=== PATIENT | female | born 1960 | race Caucasian/White ===

== ENCOUNTER 2016-12-17 21:05 | Emergency (ER) | payer BC, MEDICAID ==
[2016-12-17 21:35] VITALS: BP 144/86
[2016-12-17] MEDS ORDERED: Sodium Chloride 0.9% 10 ML Syringe FLUSH PRN (21:44)
[2016-12-17] MEDS ORDERED: HYDROmorphone 1 MG/ML Syringe IVPUSH ONE (21:44)
[2016-12-17] MEDS ORDERED: methylPREDNISolone Sodium Succinate 125 MG/2 ML SDV IVPUSH ONE (21:45)
[2016-12-17] MEDS ORDERED: Metoclopramide 10 MG/2 ML SDV IVPUSH ONE (21:45)
--- NOTE | 2016-12-17 21:49 | EDM.PDOC ---
ED HPI GENERAL MEDICAL PROBLEM - General Chief Complaint: General Stated Complaint: WHOLE BODY PAIN Time Seen by Provider: 12/17/16 21:44 Source of Information: Reports: Patient History Limitations: Reports: No limitations - History of Present Illness INITIAL COMMENTS - FREE TEXT/NARRATIVE: 56-year-old female attends the ED with generalized severe pain in all of her joints due to rheumatoid arthritis flare. Patient was diagnosed with rheumatoid arthritis about 8 years ago but she believes she's had the disease for greater than 20 years. She was seeing Dr. freitas quote clerk in [place] for primary treatment. She lost her job and lost her insurance a few months back and was was forced to stop Enbrel and methotrexate which she was on 2 provide disease control. She states this worked well for her. However the ambulance close to $ 4000 a month and she's not able to afford it. Over the last few days she's had increased generalized severe pain in all of her joints and stiffness and soreness. She states it takes about 2 hours she is to get out of bed and get moving. Primary joints involved her feet ,hands ,shoulders and knees. Onset: other (Vaginally worsening over the last several weeks.) Duration: Week(s):, Chronic Location: Reports: generalized Quality: Reports: Ache, Throbbing Severity: severe Improves with: Reports: None Worsens with: Reports: Movement Context: Denies: Activity, Exercise, Lifting, Sick contact, Trauma, Other Associated Symptoms: Reports: malaise, weakness (In all her joints). Denies: confusion, chest pain, cough, cough w sputum, diaphoresis, fever/chills, headaches, loss of appetite, nausea/vomiting, rash, seizure, shortness of breath , syncope Treatments COMMER[employer]OCIATE: Reports: Other (see below) Generalized Pain Score (Numeric/FACES): 10 - Related Data Allergies Allergy/AdvReac Type Severity Reaction Status Date / Time No Known Allergies Allergy Verified 12/17/16 21:24 Home Meds: Home Meds Acetaminophen/Caffeine [Excedrin Tension Headache] 1 tab PO Q6H PRN 05/13/15 [ History] Aspirin 81 mg PO DAILY 05/13/15 [History] Escitalopram [Lexapro] 20 mg PO DAILY 05/13/15 [History] Fluticasone Propionate [Flonase] 2 spray NASBOTH BID 05/13/15 [History] Furosemide [Furosemide] 40 mg PO DAILY PRN 05/13/15 [History] Hydroxychloroquine Sulfate [Plaquenil] 200 mg PO BID 05/13/15 [History] Ibuprofen 800 mg PO BID 05/13/15 [History] Multivitamin [Daily Vitamin] 1 tab PO DAILY 05/13/15 [History] traMADol [Ultram] 50 mg PO Q6H PRN #10 tablet 05/13/15 [Rx] Prednisone [IJD: predniSONE] 20 mg PO ASDIRECTED #40 tab 12/17/16 [Rx] Prednisone [IJD: predniSONE] 20 mg PO WITHBREAKFAST #1 tab 12/17/16 [Rx] oxyCODONE HCl/Acetaminophen [Percocet 5-325 mg Tablet] 1 - 2 each PO Q4H PRN # 30 tablet 12/17/16 [Rx] oxyCODONE HCl/Acetaminophen [Percocet 5-325 mg Tablet] 1 - 2 each PO Q4H PRN #5 tablet 12/17/16 [Rx] Past Medical History Other HEENT History: wears reading glasses Musculoskeletal History: Reports: RA - Past Surgical History Other Musculoskeletal Surgeries/Procedures:: back surgery, hammer toe repair Social & Family History - Tobacco Use Smoking Status *Q: Never Smoker - Caffeine Use Caffeine Use: Reports: Coffee, Soda - Recreational Drug Use Recreational Drug Use: No - Living Situation & Occupation Living situation: Reports: single Occupation: employed (Currently working as a cook.) ED ROS GENERAL - Review of Systems Review Of Systems: See Below Constitutional: Reports: malaise, weakness, fatigue, decreased appetite. Denies : fever, chills, weight loss HEENT: Reports: Ear pain (Had right-sided ear pain the other day which I believe is coming from the temporomandibular joint involvement with rheumatoid arthritis.) Respiratory: Reports: No Symptoms Cardiovascular: Reports: No symptoms Endocrine: Reports: fatigue GI/Abdominal: Reports: No symptoms : Reports: no symptoms Musculoskeletal: Reports: neck pain, shoulder pain, arm pain, joint pain, joint swelling, other Skin: Reports: no symptoms (Has rheumatoid arthritis. Every joint in her body is affected.) Neurological: Reports: No Symptoms Psychiatric: Reports: No symptoms ED EXAM, GENERAL - Physical Exam Exam: See Below Exam Limited By: No limitations General Appearance: alert, WD/WN, moderate distress ( appears to be in discomfort.) Throat/Mouth: Normal inspection, Normal oropharynx, Other (Does pain on palpation of both temporomandibular joints right greater than the left.) Head: atraumatic, normocephalic Neck: limited range of motion, tender lateral (Also crepitus on movement on rotation. Bilaterally.). No: full range of motion, lymphadenopathy (L), lymphadenopathy (R) Respiratory/Chest: no respiratory distress, lungs clear, normal breath sounds, no accessory muscle use, respiratory distress (Mild tachypnea at rest.) Cardiovascular: normal peripheral pulses, regular rate, rhythm, no edema, no murmur Peripheral Pulses: 1+: posterior tibial (L), posterior tibial (R), dorsalis pedis (L), dorsalis pedis (R) GI/Abdominal: normal bowel sounds, soft, non tender, no organomegaly, no abnormal bruit, no mass Back Exam: normal inspection, vertebral tenderness (Acute lower lumbar spine and SI joints.). No: CVA tenderness (L), CVA tenderness (R) Extremities: other (Shows the stigmata of rheumatoid arthritis with marked swelling of the and CP joints particularly the second and third bilaterally. There is active synovitis in both wrists both elbows and she has limited range of motion of both shoulders the abduction only to about 90 bilaterally. Similarly there is increased warmth and swelling with mild effusions in both knees. Tenderness of both ankles and swelling of the MTP joints. The first and second both feet.) Neurological: alert, oriented, CN II-XII intact, normal cognition Psychiatric: normal affect Skin Exam: Warm, Dry, Intact, Normal color, No rash Course - Vital Signs Last Recorded V/S: Last Vital Signs Temp 36.6 C 12/17/16 21:27 Pulse 86 12/17/16 21:27 Resp 20 12/17/16 21:27 BP 144/86 H 12/17/16 21:27 Pulse Ox 98 12/17/16 21:27 - Orders/Labs/Meds Orders: Active Orders 24 hr Category Date Time Status Peripheral IV Care [RC] . DIRECTED Care 12/17/16 21:44 Active Peripheral IV Insertion Adult [OM.PC] Stat Oth 12/17/16 21:44 Ordered Labs: Laboratory Tests 0412/17/16 12/17/16 Range/Units 21:55 21:55 21:55 WBC 7.24 (3.98-10.04) K/mm3 RBC 4.65 (3.98-5.22) M/mm3 Hgb 13.3 (11.2-15.7) gm/L Hct 40.8 (34.1-44.9) % MCV 87.7 (79.4-94.8) fl MCH 28.6 (25.6-32.2) pg MCHC 32.6 (32.2-35.5) g/dl RDW Std Deviation 39.7 (36.4-46.3) fL Plt Count 377 H (182-369) K/mm3 MPV 8.7 L (9.4-12.3) fl Neutrophils % (Manual) 42 (40-60) % Band Neutrophils % 0 (0-10) % Lymphocytes % (Manual) 46 H (20-40) % Atypical Lymphs % 0 % Monocytes % (Manual) 5 (2-10) % Eosinophils % (Manual) 5 (0.7-5.8) % Basophils % (Manual) 2 H (0.1-1.2) Platelet Estimate Adequate RBC Morph Comment Normal ESR 48 H (0-20) mm/hr Sodium 142 (136-145) mEq/L Potassium 3.8 (3.5-5.1) mEq/L Chloride 106 (98-107) mEq/L Carbon Dioxide 27 (21-32) mEq/L Anion Gap 12.8 (5-15) BUN 17 (7-18) mg/dL Creatinine 0.8 (0.55-1.02) mg/dL Est Cr Clr Drug Dosing 88.81 mL/min Estimated GFR (MDRD) > 60 (>60) mL/min BUN/Creatinine Ratio 21.3 H (14-18) Glucose 118 H (74-106) mg/dL Calcium 9.2 (8.5-10.1) mg/dL Total Bilirubin 0.2 (0.2-1.0) mg/dL AST 12 L (15-37) U/L ALT 16 (14-59) U/L Alkaline Phosphatase 70 (46-116) U/L C-Reactive Protein 7.5 H* (<1.0) mg/dL Total Protein 7.4 (6.4-8.2) g/dl Albumin 3.3 L (3.4-5.0) g/dl Globulin 4.1 gm/dL Albumin/Globulin Ratio 0.8 L (1-2) Meds: Medications Discontinued Medications Generic Name Dose Route Start Last Admin Trade Name Bennie PRN Reason Stop Dose Admin Hydromorphone HCl 1 mg 12/17/16 21:44 12/17/16 22:03 Dilaudid IVPUSH 12/17/16 21:45 1 mg ONETIME ONE Administration Methylprednisolone Sodium Succinate 125 mg 12/17/16 21:45 12/17/16 22:05 Solu-Medrol IVPUSH 12/17/16 21:46 125 mg ONETIME ONE Administration Metoclopramide HCl 10 mg 12/17/16 21:45 12/17/16 22:01 Reglan IVPUSH 12/17/16 21:46 10 mg ONETIME ONE Administration Prednisone Confirm 12/17/16 23:30 Prednisone Administered 12/17/16 23:31 Dose 20 mg .ROUTE .STK-MED ONE Sodium Chloride 10 ml 12/17/16 21:44 12/17/16 22:06 Saline Flush FLUSH 10 ml ASDIRECTED PRN Administration Keep Vein Open - Radiology Interpretation Free Text/Narrative:: 56-year-old female attends the ED primarily for pain management. She has chronic rheumatoid arthritis and has been without her suppressive medications for about 3 months since she lost her job and insurance. She was previously well controlled on Inderal and methotrexate but has been enema before these medicines for over 3 months. Over the last few days the pain has become unbearable. She finds it takes him 2 hours to get out of bed and get moving. 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 She states increased swelling in her hands feet and knees and elbows are the worst at the present time. On exam she shows stigmata of rheumatoid arthritis with active synovitis involving MTP joints MCP joints of her hands knees ankles wrists and elbows and limited range of motion of her shoulders as well. Lungs are clear heart sounds normal. Plan CBC CMP will be done with a sedimentation rate and a CRP. I will give her Dilaudid 1 mg IV and Reglan 10 mg IV for pain relief and Solu-Medrol 125 mg IV. - Re-Assessments/Exams Free Text/Narrative Re-Assessment/Exam: 12/17 00:11;35: Labs reveal a white count of 7.24 with 42% neutrophils no bands and 46% lymphocytes. Hemoglobin is 13.3 with hematocrit of 40.8 platelets are good at 377,000. Chemistry was normal sedimentation rate is 48 CRP is elevated at 7.5. She is feeling better after the IV Dilaudid has taken the edge off her pain. The plan is to provide her with some Percocet tablets that she can use when necessary for pain relief. I tell her provided to the ED tonight and I wrote a prescription for 20 for the tablets. These are be taken one or 2 every 6 hours as needed for pain relief. I placed her on prednisone initially 20 mg a.m. and p.m. for 5 days then one tablet in the morning only for another 5 days and then reduce to one half tablet or 10 mg once daily in the morning only until she has followup with her quote clerk. Advise she must followup before she runs out of the prednisone as the prednisone dose needs to be weaned off and not stopped abruptly. She is breast to seek social service assistance in getting monies for medications tomorrow. I believe the [employer] has been unavailable so that Embrel can be made available to patients at cost of $10 monthly. Departure - Departure Time of Disposition: 23:25 Disposition: Home, Self-Care 01 Condition: serious Clinical Impression: Rheumatoid arthritis flare Prescriptions: Prednisone [IJD: predniSONE] 20 mg PO WITHBREAKFAST #1 tab Prednisone [IJD: predniSONE] 20 mg PO ASDIRECTED #40 tab oxyCODONE HCl/Acetaminophen [Percocet 5-325 mg Tablet] 1 - 2 each PO Q4H PRN #5 tablet PRN Reason: pain relief. oxyCODONE HCl/Acetaminophen [Percocet 5-325 mg Tablet] 1 - 2 each PO Q4H PRN # 30 tablet PRN Reason: pain relief. Instructions: Arthritis, [id number] Referrals: Glendy Garza NP [Primary Care Provider] - Forms: ED Department Discharge Additional Instructions: Evaluation in the emergency tonight in regards to gradually worsening rheumatoid arthritis flareup. Diagnosis of rheumatoid arthritis for greater than 8 years. Was well controlled well U. on Enbrel and methotrexate unfortunately unable to afford these medications due to lack of finances and insurance. Lab work today revealed elevation of the inflammatory markers but no serious abnormalities of the lungs liver or kidneys. He did receive a dose of steroid intravenously call Solu-Medrol 125 mg and medicine for pain relief Dilaudid 1 mg IV. He was sent home with Percocet tablet 5-25 mg strength suggest one or 2 tablets as needed every 6 hours for pain relief with continuation of your Motrin 600 mg every 6-8 hours for inflammation relief. Also will start prednisone 20 mg once daily in the morning and one tablet was sent home with you from the ED. Suggest taking prednisone 20 mg twice daily for the next 5 days to bring your acute inflammation under control then reduce to one tablet in the morning for another 5 days and then reduce to 10 mg for one half 20 mg tablet once daily in the morning until you have time to follow up with your quote clerk. Note she will need to follow up with quote clerk before the prednisone tablets are you to used up. Prednisone medication has to be weaned off slowly after being on it for more than 14 days. - My Orders Last 24 Hours: My Active Orders 12/17/16 21:44 Peripheral IV Care [RC] . DIRECTED Peripheral IV Insertion Adult [OM.PC] Stat - Assessment/Plan Last 24 Hours: My Active Orders 12/17/16 21:44 Peripheral IV Care [RC] . DIRECTED Peripheral IV Insertion Adult [OM.PC] Stat
[2016-12-17] MEDS ORDERED: predniSONE 20 MG Tab ONE (23:30)
[2016-12-17] MEDS ORDERED: Acetaminophen/oxyCODONE 325-5 MG Tab ONE (23:30)
== END 2016-12-17 23:40 | disposition home or self-care (01) ==
LOC: JD.ED 21:05
DX: M06.9 Rheumatoid arthritis, unspecified (principal); Z98.890 Other specified postprocedural states; Z79.899 Other long term (current) drug therapy; Z79.82 Long term (current) use of aspirin
CPT/HCPCS: 36415; 80053; 85025; 85652; 86140; 96374; 96375; 99283; A9270; J1170; J2765; J2930; J7050; 99284

== ENCOUNTER 2017-01-11 16:55 | Emergency (ER) | payer MEDICAID ==
[2017-01-11 17:13] VITALS: BP 131/89
--- NOTE | 2017-01-11 17:33 | EDM.PDOC ---
ED HPI GENERAL MEDICAL PROBLEM - General Chief Complaint: General Stated Complaint: HEAD ACHE, DIZZNESS Time Seen by Provider: 01/11/17 17:28 Source of Information: Reports: Patient, Family (spouse) History Limitations: Reports: No limitations - History of Present Illness INITIAL COMMENTS - FREE TEXT/NARRATIVE: 56-year-old female presents the ED for evaluation of upper respiratory tract infection. She feels caught a cold with marked sinus congestion for the last week to 10 days. Has a thick postnasal drip drip with a dark green discoloration to the discharge. She has pain in her forehead into. Ocular area as well as in her facial cheeks under her eyes. Her upper teeth hurt. She is aware of postnasal drip with paroxysmal cough to the point of emesis of just mucus at times. Nauseated at times. Is mildly immunocompromised as she remains on prednisone 10 mg once daily for control of rheumatoid arthritis. Intermittent fever and chills. Can't lay flat in bed due to to choking feeling in her throat. Associated sore throat from coughing so much. Appetite remains very poor. No diarrhea. Onset Date: 01/04/17 Duration: Day(s): (About a week ago perhaps 10 days ago.), Getting worse Location: Reports: head, face, chest Quality: Reports: Ache, Pressure Severity: moderate Improves with: Reports: None Worsens with: Reports: Other (Lying down.) Context: Denies: Activity, Exercise, Lifting, Sick contact, Trauma, Other Associated Symptoms: Reports: cough w sputum, fever/chills, headaches, loss of appetite, malaise, weakness (Dizzy and lightheaded at times.), other. Denies: confusion, chest pain, diaphoresis (Mostly dark green some yellow. No blood), nausea/vomiting, syncope Treatments [employer]ING: Reports: Other (see below) (Motrin.) Frontal Headache Pain Score (Numeric/FACES): 8 - Related Data Allergies Allergy/AdvReac Type Severity Reaction Status Date / Time No Known Allergies Allergy Verified 01/11/17 17:08 Home Meds: Home Meds Acetaminophen/Caffeine [Excedrin Tension Headache] 1 tab PO Q6H PRN 05/13/15 [ History] Aspirin 81 mg PO DAILY 05/13/15 [History] Escitalopram [Lexapro] 20 mg PO DAILY 05/13/15 [History] Fluticasone Propionate [Flonase] 2 spray NASBOTH BID 05/13/15 [History] Furosemide [Furosemide] 40 mg PO DAILY PRN 05/13/15 [History] Hydroxychloroquine Sulfate [Plaquenil] 200 mg PO BID 05/13/15 [History] Ibuprofen 800 mg PO BID 05/13/15 [History] Multivitamin [Daily Vitamin] 1 tab PO DAILY 05/13/15 [History] traMADol [Ultram] 50 mg PO Q6H PRN #10 tablet 05/13/15 [Rx] Prednisone [IJD: predniSONE] 20 mg PO ASDIRECTED #40 tab 12/17/16 [Rx] Prednisone [IJD: predniSONE] 20 mg PO WITHBREAKFAST #1 tab 12/17/16 [Rx] oxyCODONE HCl/Acetaminophen [Percocet 5-325 mg Tablet] 1 - 2 each PO Q4H PRN # 30 tablet 12/17/16 [Rx] oxyCODONE HCl/Acetaminophen [Percocet 5-325 mg Tablet] 1 - 2 each PO Q4H PRN #5 tablet 12/17/16 [Rx] Amoxicillin/Potassium Clav [Augmentin 500-125 Tablet] 1 each PO BID #20 tablet 01/11/17 [Rx] Hydrocodone/Chlorphen P-Stirex [Tussionex Pennkinetic Susp] 5 ml PO Q12H PRN # 60 ml 01/11/17 [Rx] oxyCODONE HCl/Acetaminophen [Percocet 5-325 mg Tablet] 1 - 2 each PO Q4H PRN # 24 tablet 01/11/17 [Rx] Past Medical History Other HEENT History: wears reading glasses Musculoskeletal History: Reports: RA - Past Surgical History Other Musculoskeletal Surgeries/Procedures:: back surgery, hammer toe repair Social & Family History - Tobacco Use Smoking Status *Q: Never Smoker - Caffeine Use Caffeine Use: Reports: Coffee - Recreational Drug Use Recreational Drug Use: No - Living Situation & Occupation Living situation: Reports: single Occupation: employed (Currently working as a cook.) ED ROS GENERAL - Review of Systems Review Of Systems: See Below Constitutional: Reports: fever, chills, malaise, weakness, fatigue, decreased appetite. Denies: weight loss HEENT: Reports: Ear pain, Rhinitis, Sinus problem, Throat pain, Vertigo (Mild). Denies: Eye pain, Nose pain Respiratory: Reports: Shortness of Breath, Wheezing, Cough, Sputum. Denies: Pleuritic Chest Pain (At end expiration), Hemoptysis (L. to [place]) Cardiovascular: Reports: No symptoms, Chest pain, Lightheadedness. Denies: Blood pressure problem (Some pain with coughing in her upper chest.), Claudication, Dyspnea on exertion, Edema, Orthopnea, Palpitations Endocrine: Reports: fatigue GI/Abdominal: Reports: Anorexia, Decreased appetite. Denies: Nausea, Vomiting : Reports: no symptoms Musculoskeletal: Reports: other (Patient has rheumatoid arthritis which is primarily affecting her hands wrists elbows knees.) Skin: Reports: no symptoms Neurological: Reports: Dizziness, Headache, Weakness. Denies: Trouble Speaking , Difficulty Walking Psychiatric: Reports: No symptoms Hematologic/Lymphatic: Reports: no symptoms Immunologic: Reports: no symptoms ED EXAM, GENERAL - Physical Exam Exam: See Below Exam Limited By: No limitations General Appearance: alert, mild distress, other (Mildly warm to palpation.) Eye Exam: bilateral eye: normal inspection Ears: normal TMs Nose: nasal swelling, nasal drainage (Or green color.). No: nasal tenderness Throat/Mouth: Other (Tongue is very dry and coated. Pharynx is mildly erythematous without exudate.) Head: atraumatic, normocephalic Neck: normal inspection, supple, non-tender, full range of motion. No: lymphadenopathy (L), lymphadenopathy (R) Respiratory/Chest: decreased breath sounds (Decrease to the posterior 25% the lung shore.), rhonchi, wheezing ( at end expiration.). No: crackles, rales Cardiovascular: normal peripheral pulses (Data rhonchi anterior upper chest), regular rate, rhythm, no edema, no gallop GI/Abdominal: normal bowel sounds, soft, non tender, no organomegaly, no distention, no abnormal bruit Back Exam: normal inspection, full range of motion. No: CVA tenderness (L), CVA tenderness (R) Extremities: joint swelling (MCP joints of both hands there is active synovitis in her elbows and wrists as well with mild increased warmth. He is also reveal increased warmth from rheumatoid arthritis.) Neurological: alert, oriented, CN II-XII intact, normal cognition, normal gait Psychiatric: normal affect, normal mood Skin Exam: Warm, Dry, Intact, Normal color, No rash Course - Vital Signs Last Recorded V/S: Last Vital Signs Temp 37.0 C 01/11/17 17:03 Pulse 113 H 01/11/17 17:03 Resp 18 01/11/17 17:03 BP 131/89 01/11/17 17:03 Pulse Ox 96 01/11/17 17:03 - Orders/Labs/Meds Orders: Active Orders 24 hr Category Date Time Status Chest 1V Frontal [CR] Stat Exams 01/11/17 17:28 Taken - Radiology Interpretation Free Text/Narrative:: 56-year-old female attends the ED with marked sinus congestion postnasal drip and paroxysmal cough. Sputum is dark green in color as is the nasal discharge. Decreased appetite. Associated fever and chills. Started about a month week ago. Worse over the last 3 days. Unable to lie down because of sense of choking and worsening of cough. If the patient is mildly immunocompromised due to being on prednisone 10 mg daily for rheumatoid arthritis. Plan chest x-ray to be done. Rule out pneumonia. - Re-Assessments/Exams Free Text/Narrative Re-Assessment/Exam: 01/11/17 18:12 chest x-ray is negative for any infective process. It does suggest diffuse vascular congestion. Mild cardiomegaly evident. Patient will be placed on Augmentin 500 mg twice daily for 10 days to clear up sinus infection and bronchitis. Also prescription written for Tussionex cough syrup 5 mils every 12 hours. For cough relief x60 mils. Percocet tabs 5 325 one or 2 every 4- 6 hours needed for relief of rheumatoid arthritis pain primarily used in the evening to aid sleep.she has gotten insurance and is planning on getting restarted on Enbrel and methotrexate which were working well to control her rheumatoid arthritis in the past Departure - Departure Time of Disposition: 18:36 Disposition: Home, Self-Care 01 Condition: fair Clinical Impression: Bronchitis Sinusitis Qualifiers: Sinusitis location: unspecified location Chronicity: acute Recurrence: recurrent Qualified Code(s): J01.91 - Acute recurrent sinusitis, unspecified Prescriptions: Amoxicillin/Potassium Clav [Augmentin 500-125 Tablet] 1 each PO BID #20 tablet Hydrocodone/Chlorphen P-Stirex [Tussionex Pennkinetic Susp] 5 ml PO Q12H PRN # 60 ml PRN Reason: Cough relief oxyCODONE HCl/Acetaminophen [Percocet 5-325 mg Tablet] 1 - 2 each PO Q4H PRN # 24 tablet PRN Reason: pain relief. Instructions: Sinusitis, Adult, Acute Bronchitis, [id number] Referrals: Glendy Garza BULK TANK DRIVER [Primary Care Provider] - Forms: ED Department Discharge Additional Instructions: Evaluation in the emergency room today in regards to upper respiratory tract infection primarily involving the sinuses with thick green discharge and postnasal drip. Associated intermittent paroxysmal cough often to the point of emesis of just phlegm. Associated fever chills nausea and lightheadedness. Chest x-ray done does not reveal any evidence of pneumonia. Treatment is to be antibiotic Augmentin 500 mg twice daily for the next 10 days to clear up sinus and chest infection. Tussionex cough syrup 1 teaspoon every 12 hours to relieve cough. Takes a good hour before planning to go to bed has a taste good hour to work. Percocet 5 /325 tabs may be utilized one or 2 as needed for relief of rheumatoid arthritis pain. It will also work to suppress cough. Expect gradual improvement over the next 72 hours. - My Orders Last 24 Hours: My Active Orders 01/11/17 17:28 Chest 1V Frontal [CR] Stat - Assessment/Plan Last 24 Hours: My Active Orders 01/11/17 17:28 Chest 1V Frontal [CR] Stat
--- NOTE | 2017-01-12 10:53 | CR ---
Chest: Portable view of the chest was obtained. Comparison: No prior chest x-ray. Heart size and mediastinum are within normal limits for portable technique. Lungs are clear. Bony structures are grossly intact. Impression: 1. Nothing acute is identified on portable chest x-ray. Diagnostic code #1
== END 2017-01-11 19:00 | disposition home or self-care (01) ==
LOC: JD.ED 16:55
DX: J01.91 Acute recurrent sinusitis, unspecified (principal); J40 Bronchitis, not specified as acute or chronic; Z98.890 Other specified postprocedural states; Z79.82 Long term (current) use of aspirin; Z79.899 Other long term (current) drug therapy
CPT/HCPCS: 71010; 71010-26; 99283; 99284

== ENCOUNTER 2020-05-19 14:36 | Inpatient (IN) | payer MEDICARE, MEDICAID ==
[2020-05-19] MEDS ORDERED: Iopamidol 755 MG/ML 50 ML Bottle IVPUSH ONE (14:49)
[2020-05-19] MEDS ORDERED: Iopamidol 755 Mg/ML 100 ML Bottle IVPUSH ONE (14:49)
[2020-05-19] MEDS ORDERED: Sodium Chloride 0.9% 10 ML Syringe FLUSH PRN ×2 (14:49)
[2020-05-19] MEDS ORDERED: Morphine 2 MG/ML SYRINGE IVPUSH ONE ×2 (14:50→16:29)
[2020-05-19] MEDS ORDERED: Sodium Chloride 0.9% 1,000 ML IV SCH ×2 (15:00→18:30)
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
--- NOTE | 2020-05-19 15:33 | CT ---
CT cervical spine Technique: Multiple axial sections through the cervical spine were obtained. Study was obtained from above C1 inferiorly to the mid T2 level. Reconstructed sagittal and coronal images were reviewed. Findings: Diffuse disc space narrowing with posterior osteophytes and anterior osteophytes are seen throughout the cervical spine. Mild diffuse degenerative apophyseal change is seen. Moderate right-sided neural foraminal stenosis noted at C4-5. Moderate bilateral neural foraminal stenosis noted at C5-6. Other neural foramina are patent. Fracture is identified within the right articular mass of C3 which extends into the right C3-4 apophyseal joint. No displacement is seen. No additional fracture is noted. No abnormal subluxation is seen. Impression: 1. Fracture within the right articular mass of C3 which shows no displacement. No additional fracture is seen at this level and this fracture is felt to be stable. 2. Degenerative change as noted above. 3. No other acute finding is seen. Diagnostic code #3 This report was dictated in MDT
--- NOTE | 2020-05-19 15:35 | CR ---
Pelvis: AP view of the pelvis was obtained. Comparison: No previous pelvis study. Disc space narrowing within the lower lumbar spine is seen. Joint spaces within both hips are fairly well preserved. Sacroiliac joints appear slightly narrowed on the left side. No discrete fracture or other abnormality is appreciated. Impression: 1. Slight degenerative change as noted above. 2. No acute abnormality is seen on AP pelvis study. Diagnostic code #2 This report was dictated in MDT
--- NOTE | 2020-05-19 15:35 | CT ---
Head CT Technique: Multiple axial sections through the brain were obtained. Intravenous contrast was not utilized. Findings: Soft tissue swelling is noted within the left side of the scalp. Ventricles along with basal cisterns and sulci over the convexities are within normal limits. No abnormal parenchymal densities are seen. No evidence of intracranial hemorrhage. No midline shift or mass-effect is appreciated. Visualized paranasal sinuses and mastoid sinuses show nothing acute. No acute calvarial finding is seen. Impression: 1. Soft tissue swelling within the left side of the scalp. 2. No acute intracranial abnormality is appreciated. Diagnostic code #2 This report was dictated in MDT
--- NOTE | 2020-05-19 15:36 | CR ---
Chest: Portable supine view of the chest was obtained. Comparison: Prior chest x-ray of 01/11/17. Heart size and mediastinum are normal. Lungs are clear with no acute parenchymal change. Bony structures are grossly intact. Impression: 1. Nothing acute is seen on portable supine chest x-ray. Diagnostic code #1 This report was dictated in MDT
--- NOTE | 2020-05-19 15:52 | CT ---
CT chest Technique: Multiple axial sections were obtained from above the lung apices inferiorly through the lung bases. Intravenous contrast was utilized. Findings: Thoracic aorta shows no aneurysm. Mediastinum shows no hematoma. Small normal-sized lymph nodes are seen. No lymphadenopathy is noted. No pericardial fluid is seen. Lungs show no acute pulmonary contusion. No acute parenchymal change is seen. No pleural effusions or pneumothorax are seen. Bone window settings were reviewed which shows several subacute anterior rib fracture showing mild callus. No definite acute rib fracture is seen. Fracture is noted within the upper body of the sternum showing slight retrosternal soft tissue swelling. Impression: 1. Fracture within the upper body of the sternum with mild retrosternal soft tissue swelling. 2. Subacute healing anterior rib fractures on both side of the chest. 3. No other acute abnormality is appreciated. Diagnostic code #3 This report was dictated in MDT CT abdomen and pelvis Technique: Multiple axial sections were obtained from above the dome of the diaphragm inferiorly through the pubic symphysis. Intravenous contrast was utilized. No oral contrast has been given. Comparison: No prior abdominal or pelvic CT exam is available. Findings: Cyst is noted within the dome of the left lobe of the liver measuring 1.3 cm. Spleen appears within normal limits. Adrenal glands show no nodule. Pancreas shows no discrete abnormality. Surgical clips are seen from prior cholecystectomy. Aorta shows no aneurysm. Kidneys show symmetric contrast enhancement without hydronephrosis or other abnormality. No retroperitoneal adenopathy is seen. No mesenteric abnormalities are seen. No pelvic mass or adenopathy is seen. No free fluid or inflammatory change is seen. Delayed images shows contrast within the distal ureters and bladder. Bony pelvis shows no discrete fracture. Impression: 1. Findings as noted above. Nothing acute is seen within the abdomen or pelvis. Diagnostic code #2 This report was dictated in MDT
--- NOTE | 2020-05-19 15:55 | CT ---
CT lumbar spine Technique: Multiple axial sections through the lumbar spine were obtained. Reconstructed coronal and sagittal images were obtained. Findings: Fracture is identified involving the superior vertebral body of L1. Mild endplate concavity is seen. Fracture does not extend into the posterior vertebral line or posterior elements. No additional lumbar spine fracture is seen. Severe disc space narrowing is noted at L2-3 through L5-S1 with vacuum phenomena. Multiple levels of degenerative apophyseal change is seen. Diffuse circumferential disc bulges are seen. Impression: 1. Endplate concavity of L1 which appears acute. No fracture extension is seen into the posterior elements or into the posterior vertebral line. 2. Diffuse degenerative change. Diagnostic code #3 This report was dictated in MDT
--- NOTE | 2020-05-19 15:59 | CT ---
CT thoracic spine Technique: Multiple axial sections through the thoracic spine were obtained. Reconstructed coronal and sagittal images were obtained. Findings: Slight endplate concavity is noted of approximately T4 which appears to be acute. Other vertebral body heights are maintained. No other fracture line is appreciated. No abnormal subluxation is seen. Scattered disc space narrowing is noted with mild anterior endplate osteophytes. No abnormal subluxation is seen. Impression: 1. Slight endplate concavity of T4 which appears to be acute. 2. Diffuse degenerative change. Diagnostic code #3 This report was dictated in MDT
[2020-05-19] MEDS ORDERED: Lidocaine 1% 10 ML MDV INJECT ONE (16:58)
[2020-05-19] MEDS ORDERED: Diphtheria,Pertussis(Acell),Tetanus Vaccine 0.5 ML Syringe IM ONE (17:48)
[2020-05-19] MEDS: Morphine 2 MG/ML SYRINGE IVPUSH PRN ×2 (18:46→20:58)
[2020-05-19] MEDS ORDERED: Ondansetron 4 MG/2 ML SDV IVPUSH PRN (19:00)
[2020-05-20] MEDS: Morphine 2 MG/ML SYRINGE IVPUSH PRN ×3 (00:35→07:54)
[2020-05-20] MEDS ORDERED: Furosemide 40 MG Tab PO PRN (08:10)
[2020-05-20] MEDS ORDERED: CAFFEINE PO PRN (08:10)
[2020-05-20] MEDS ORDERED: [UNRECOGNIZED DRUG - OTHER] PO PRN (08:10)
[2020-05-20] MEDS ORDERED: ACETAMINOPHEN PO PRN (08:10)
[2020-05-20] MEDS ORDERED: Morphine 2 MG/ML SYRINGE IVPUSH PRN (08:13)
[2020-05-20] MEDS ORDERED: Sodium Chloride 0.9% 10 ML Syringe FLUSH PRN (08:50)
[2020-05-20] MEDS ORDERED: Iopamidol 755 Mg/ML 100 ML Bottle IVPUSH ONE (08:50)
[2020-05-20] MEDS ORDERED: Fluticasone Propionate Nasal Spray 16 GM Bottle NASBOTH SCH (09:00)
[2020-05-20] MEDS ORDERED: Citalopram 20 MG Tab PO SCH (09:00)
[2020-05-20] MEDS ORDERED: Sodium Chloride 0.9% 100 ML IV SCH (09:00)
[2020-05-20] MEDS: Ketorolac 15 MG/ML SDV IVPUSH SCH ×2 (09:17→17:45)
[2020-05-20] MEDS: Aspirin 81 MG Tab.Chew PO SCH (09:22)
[2020-05-20] MEDS: Hydroxychloroquine 200 MG Tab PO SCH ×2 (09:22→20:55)
[2020-05-20] MEDS: Heparin Sodium 5,000 Units/ML Vial SUBCUT SCH ×2 (09:24→17:48)
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
--- NOTE | 2020-05-20 10:48 | CR ---
Cervical spine: Flexion and extension lateral views of the cervical spine were obtained. Comparison: Prior cervical spine CT study of 05/19/20. Diffuse posterior disc space narrowing is seen. Moderate diffuse disc space narrowing is noted at C6-7. No abnormal subluxation is seen. No prevertebral soft tissue swelling is seen. Fracture noted on CT cervical spine study is too subtle to see on this plain film study. Impression: 1. No abnormal subluxation. Degenerative change as noted above. Diagnostic code #2 This report was dictated in MDT
--- NOTE | 2020-05-20 10:50 | CR ---
Lumbar spine: Lateral views of the lumbar spine were obtained. Comparison: Prior CT lumbar spine study of 05/19/20. Moderate compression deformity is seen of L1. This has increased in severity from previous study performed one day earlier. Slight posterior bowing of the posterior vertebral line is seen which is an interval change. Degenerative change is noted which is stable. No other compression deformities are seen. Impression: 1. Increasing compression deformity of L1 now showing slight posterior bowing of the posterior vertebral line. Findings have worsened from previous CT study. Diagnostic code #3 This report was dictated in MDT
--- NOTE | 2020-05-20 10:51 | CR ---
Thoracic spine: Single lateral view of the thoracic spine was obtained. Comparison: Prior CT thoracic spine exam of 05/19/20. Minimal anterior wedging of T3. This appears stable from prior study. Diffuse disc space narrowing is seen. Other vertebral body heights are maintained. No abnormal subluxation is seen. Impression: 1. Minimal anterior wedging of T3 which is stable from prior CT study. 2. Degenerative change. Diagnostic code #3 This report was dictated in MDT
--- NOTE | 2020-05-20 12:21 | CT ---
CT angiogram of the neck Technique: Multiple axial sections through the neck were obtained. Intravenous contrast was utilized. Study was performed as a CT angiogram. Multiple MIP images were obtained. Findings: Both common carotid arteries are widely patent. Carotid bulbs show no focal stenosis. Internal and proximal external carotid arteries appear patent without focal stenosis. Both vertebral arteries are patent. Impression: 1. No abnormality is identified on CT angiogram study of the neck. Diagnostic code #1 This report was dictated in MDT
[2020-05-20] MEDS: Acetaminophen 325 MG Tab PO PRN ×2 (14:32→20:55)
[2020-05-20] MEDS: Caffeine 200 MG Tab PO PRN ×2 (14:34→20:54)
[2020-05-20] MEDS: oxyCODONE 5 MG Tab PO PRN (22:58)
[2020-05-21] MEDS: Heparin Sodium 5,000 Units/ML Vial SUBCUT SCH ×3 (01:13→17:48)
[2020-05-21] MEDS: Ketorolac 15 MG/ML SDV IVPUSH SCH ×2 (01:14→08:02)
[2020-05-21] MEDS: oxyCODONE 5 MG Tab PO PRN ×3 (07:57→20:43)
[2020-05-21] MEDS: Citalopram 20 MG Tab PO SCH (08:01)
[2020-05-21] MEDS: Hydroxychloroquine 200 MG Tab PO SCH ×2 (08:01→20:43)
[2020-05-21] MEDS: Aspirin 81 MG Tab.Chew PO SCH (08:01)
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
[2020-05-21] MEDS: Acetaminophen 325 MG Tab PO PRN (13:26)
[2020-05-22] MEDS: Heparin Sodium 5,000 Units/ML Vial SUBCUT SCH ×2 (00:04→08:58)
[2020-05-22] MEDS: oxyCODONE 5 MG Tab PO PRN ×2 (03:15→12:24)
[2020-05-22 08:34] VITALS: BP 130/56; PULSE 86
[2020-05-22] MEDS: Aspirin 81 MG Tab.Chew PO SCH (08:57)
[2020-05-22] MEDS: Hydroxychloroquine 200 MG Tab PO SCH (08:57)
[2020-05-22] MEDS: Citalopram 20 MG Tab PO SCH (08:58)
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
[2020-05-25] MEDS ORDERED: Methotrexate 2.5 MG Tab PO SCH (22:00)
== END 2020-05-22 12:33 | disposition home health service (06) | DRG 565 ==
LOC: JD.ED 14:36 → JD.MS 17:28 → OBSVTOIN 05-20 13:02
PROVIDERS: ADMIT Surgery; ATTEND Surgery
DX: S22.22XA Fracture of body of sternum, initial encounter for closed fracture (principal); S12.200A Unspecified displaced fracture of third cervical vertebra, initial encounter for closed fracture; S01.81XA Laceration without foreign body of other part of head, initial encounter; Z20.828 Contact with and (suspected) exposure to other viral communicable diseases; H54.7 Unspecified visual loss; M06.9 Rheumatoid arthritis, unspecified; Z98.890 Other specified postprocedural states; M19.90 Unspecified osteoarthritis, unspecified site; G89.29 Other chronic pain; I25.10 Atherosclerotic heart disease of native coronary artery without angina pectoris; K21.9 Gastro-esophageal reflux disease without esophagitis; F41.9 Anxiety disorder, unspecified; F32.9 Major depressive disorder, single episode, unspecified; Z79.82 Long term (current) use of aspirin; Z79.899 Other long term (current) drug therapy; V89.2XXA Person injured in unspecified motor-vehicle accident, traffic, initial encounter
CPT/HCPCS: 12002; 36415; 70450; 70498; 71045; 71260; 72052; 72072; 72100; 72125; 72128; 72131; 72170; 74177; 80053; 80307; 81001; 85025; 93005; 96361 ×3; 96372; 96374; 96375 ×2; 96376 ×3; 97162; 97166; 97530 ×2; 99285; A9270 ×3; G0378 ×3; J1644; J1885; J2001; J2270 ×7; J2405; J7030 ×2; J7050; Q9967 ×3; U0002; 90471; 90715; 93010; 97535-GO